=== PATIENT | female | born 1960 | race Caucasian/White ===

== ENCOUNTER 2018-05-09 08:39 | Observation (INO) | payer BC, OTHER ==
[2018-05-09] MEDS ORDERED: NA CHLORIDE 0.9% 500 ML ONE (09:17)
[2018-05-09] MEDS ORDERED: MECLIZINE HCL 12.5 MG TAB ONE (09:17)
[2018-05-09] MEDS ORDERED: DIAZEPAM 10 MG/2 ML INJ SYRINGE ONE (09:19)
[2018-05-09] MEDS ORDERED: ONDANSETRON 4 MG/2 ML VIAL ONE (09:21)
--- NOTE | 2018-05-09 09:33 | RAD REPORT ---
EXAM DESCRIPTION: CT - Head Brain Wo Cont - 05/09/2018 9:25 am CLINICAL HISTORY: Dizziness COMPARISON: None. TECHNIQUE: Computed axial tomography of the head was obtained. IV contrast was not requested. All CT scans are performed using dose optimization technique as appropriate and may include automated exposure control or mA/KV adjustment according to patient size. FINDINGS: An intracranial bleed is not seen . The ventricles are normal in caliber. No extra-axial fluid collection is noted. Fluid within the sinuses/ mastoids is not seen. IMPRESSION: No acute intracranial abnormality is seen. If patient's symptoms persist MRI of the bra in would be recommended.
[2018-05-09 09:43] LABS: Absolute Lymphocytes (CBC) 1.9 K/uL (0.7-4.9); Absolute Monocytes 0.4 K/uL (0.1-1.3); Absolute Neutrophil 3.9 K/uL (1.8-8.0); Basophils % 0.9 % (0-1.3); Eosinophils % 1.3 % (0-4.4); Hematocrit 42.8 % (36.0-45.0); Lymphocytes % 29.7 % (15.3-44.8); MCH 28.8 pg (27.0-35.0); MCV 83.8 fL (80-100); MPV 9.2 fL (7.6-11.3); Monocytes % 6.2 % (3.3-12.3); RBC Red Blood Cell Count 5.11 M/uL (3.86-4.86)
[2018-05-09 09:48] LABS: BUN Blood Urea Nitrogen 11 mg/dL (7-18); Bicarbonate 24 mmol/L (21-32); Glucose Level 95 mg/dL (74-106); Sodium Level 141 mmol/L (136-145)
[2018-05-09] MEDS ORDERED: METOCLOPRAMIDE 10 MG/2mL INJ ONE (10:23)
--- NOTE | 2018-05-09 10:56 | ER ---
Nurse's Notes [facility] Name: Lashay Triana Age: 57 yrs Sex: Female : 1960 Arrival Date: 05/09/2018 Time: 08:41 Bed 7 Private MD: Sedrick Matthews Diagnosis: Vertiginous syndromes in diseases classified elsewhere;Vertiginous syndromes in diseases classified elsewhere, left ear Presentation: 05/09 08:50 Presenting complaint: Patient states: i have been dizzy for 3 days , when i get up in tw2 the morning the room and myself is spinning, but when i lay on my LEFT side it is worse, i have a slight MORILLO and i have been feeling nauseous. Transition of care: patient was not received from another setting of care. Onset of symptoms was May 09, 2018. Risk Assessment: Do you want to hurt yourself or someone else? Patient reports no desire to harm self or others. Initial Sepsis Screen: Does the patient meet any 2 criteria? No. Patient's initial sepsis screen is negative. Does the patient have a suspected source of infection? No. Patient's initial sepsis screen is negative. Care prior to arrival: None. 08:50 Method Of Arrival: Wheelchair tw2 08:50 Acuity: CASSIE 3 tw2 Historical: - Allergies: 08:54 Vicodin; tw2 - Home Meds: 08:54 None [Active]; tw2 - PMHx: 08:54 None; tw2 - PSHx: 08:54 None; tw2 - Immunization history:: Adult Immunizations. - Social history:: Smoking status: Patient/guardian denies using tobacco. - Ebola Screening: : Patient denies travel to an Ebola-affected area in the 21 days before illness onset. Screenin:55 Abuse screen: Denies threats or abuse. Nutritional screening: No deficits noted. tw2 Tuberculosis screening: No symptoms or risk factors identified. Fall Risk None identified. Assessment: 08:54 General: Appears in no apparent distress. Behavior is calm, cooperative, appropriate tw2 for age. Pain: Complains of pain in MORILLO. Neuro: Level of Consciousness is awake, alert, obeys commands, Oriented to person, place, time, situation. Neuro: Reports dizziness, headache. Cardiovascular: Denies chest pain, shortness of breath, Heart tones S1 S2 Patient's skin is warm and dry. Respiratory: Airway is patent Respiratory effort is even, unlabored, Respiratory pattern is regular, symmetrical, Breath sounds are clear bilaterally. GI: No signs and/or symptoms were reported involving the gastrointestinal system. : No signs and/or symptoms were reported regarding the genitourinary system. EENT: No signs and/or symptoms were reported regarding the EENT system. Derm: No signs and/or symptoms reported regarding the dermatologic system. Musculoskeletal: Range of motion: intact in all extremities. 09:31 Reassessment: Patient appears in no apparent distress at this time. Patient and/or tw2 family updated on plan of care and expected duration. Pain level reassessed. pt is back from CT at this time, appears drowsy, o2 at 94%, pt placed on o2 via NC at 2L , will continue to monitor, provider notified. 10:08 Reassessment: Patient appears in no apparent distress at this time. Patient and/or tw2 family updated on plan of care and expected duration. Pain level reassessed. Patient is alert, oriented x 3, equal unlabored respirations, skin warm/dry/pink. pt c/o nauseousness and "still i cant even look to the left or i get dizzy", provider notified. 12:13 Reassessment: Patient appears in no apparent distress at this time. Patient and/or tw2 family updated on plan of care and expected duration. Pain level reassessed. Patient is alert, oriented x 3, equal unlabored respirations, skin warm/dry/pink. Vital Signs: 08:52 BP 133 / 100; Pulse 74; Resp 18; Temp 97.9(O); Pulse Ox 97% on R/A; Pain 4/10; tw2 09:32 BP 117 / 82; Pulse 58; Resp 14; Pulse Ox 96% on 2 lpm NC; Pain 0/10; tw2 10:08 BP 125 / 87; Pulse 58; Resp 17; Pulse Ox 100% on 2 lpm NC; tw2 12:12 BP 119 / 83; Pulse 65; Resp 17; Pulse Ox 98% on R/A; tw2 ED Course: 08:41 Patient arrived in ED. as 08:41 Sedrick Matthews MD is Private Physician. as 08:48 Salazar Nolan MD is Attending Physician. kdr 08:50 Jacquie De Souza RN is Primary Nurse. tw2 08:52 Triage completed. tw2 08:54 Arm band placed on. tw2 08:54 Bed in low position. Call light in reach. Pulse ox on. NIBP on. tw2 09:07 Inserted saline lock: 22 gauge in left antecubital area, using aseptic technique. Blood tw2 collected. 09:24 CT completed. Patient moved to CT via stretcher. Patient moved back from CT. cw1 09:25 CT Head Brain wo Cont In Process Unspecified. EDMS 10:[address] via stretcher. cw1 10:54 Duran Romeo DO is Hospitalizing Provider. kdr 11:02 CT completed. Patient moved back from CT. cw1 11:03 Head angio In Process Unspecified. EDMS 12:17 No provider procedures requiring assistance completed. Patient admitted, IV remains in tw2 place. Administered Medications: 09:15 Drug: Meclizine 50 mg Route: PO; tw2 10:08 Follow up: Response: No adverse reaction; No change in condition tw2 09:15 Drug: Zofran 4 mg Route: IVP; Site: left antecubital; tw2 10:06 Follow up: Response: No adverse reaction tw2 10:07 Follow up: Response: No adverse reaction; Nausea unchanged; Nausea unchanged, provider tw2 notified. 09:18 Drug: Valium 5 mg Route: IVP; Site: left antecubital; tw2 10:06 Follow up: Response: No adverse reaction; Marked relief of symptoms tw2 09:31 Drug: NS 0.9% 500 ml Route: IV; Rate: bolus; Site: left antecubital; tw2 10:00 Follow up: Response: No adverse reaction; IV Status: Completed infusion; IV Intake: tw2 500ml 10:20 Drug: Reglan 10 mg Route: IVP; Site: left antecubital; tw2 12:18 Follow up: Response: No adverse reaction; Nausea is decreased tw2 Intake: 10:00 IV: 500ml; Total: 500ml. tw2 Outcome: 10:55 Decision to Hospitalize by Provider. kdr 12:17 Admitted to Med/surg accompanied by tech, via wheelchair, room 421, with chart, Report tw2 called to LIZZY Elise 12:17 Condition: stable 12:17 Instructed on the need for admit. 12:28 Patient left the ED. ph Signatures: Dispatcher [employer] EDMS Salazar Nolan MD MD kdr Martinez, Amelia as Woodley, Crystal cw1 Verenice Coronado RN RN ph Jacquie De Souza RN RN tw2
--- NOTE | 2018-05-09 10:56 | EDPHYS ---
Physician Documentation [facility] Name: Lashay Triana Age: 57 yrs Sex: Female : 1960 Arrival Date: 05/09/2018 Time: 08:41 Bed 7 Private MD: Sedrick Matthews ED Physician Salazar Nolan HPI: 05/09 11:53 This 57 yrs old Female presents to ER via Wheelchair with complaints of kdr Dizziness. 11:53 The patient presents with dizziness, feeling off balance, vertigo. Onset: The kdr symptoms/episode began/occurred gradually, 3 day(s) ago. Context: occurred at home, occurred while the patient was just prior to the episode the patient experienced no apparent symptoms. Modifying factors: The symptoms are alleviated by holding head still, Laying on right side, the symptoms are aggravated by movement of head, changing position, Laying on the right side with few s/s. On the left side is is much worse.. Associated signs and symptoms: Pertinent positives: headache, Pertinent negatives: abdominal pain, agitation, ataxia, blurred vision, chest pain, combativeness, confusion, diaphoresis, focal weakness, head injury, nausea, near-syncope. Severity of symptoms: At their worst the symptoms were severe incapacitating just prior to arrival, in the emergency department the symptoms have improved moderately. The patient has not experienced similar symptoms in the past. The patient has not recently seen a physician. Historical: - Allergies: 08:54 Vicodin; tw2 - Home Meds: 08:54 None [Active]; tw2 - PMHx: 08:54 None; tw2 - PSHx: 08:54 None; tw2 - Immunization history:: Adult Immunizations. - Social history:: Smoking status: Patient/guardian denies using tobacco. - Ebola Screening: : Patient denies travel to an Ebola-affected area in the 21 days before illness onset. ROS: 11:53 Constitutional: Negative for fever, chills, and weight loss, Eyes: Negative for injury, kdr pain, redness, and discharge, ENT: Negative for injury, pain, and discharge, Neck: Negative for injury, pain, and swelling, Cardiovascular: Negative for chest pain, palpitations, and edema, Respiratory: Negative for shortness of breath, cough, wheezing, and pleuritic chest pain, Abdomen/GI: Negative for abdominal pain, nausea, vomiting, diarrhea, and constipation, Back: Negative for injury and pain, : Negative for injury, bleeding, discharge, and swelling, MS/Extremity: Negative for injury and deformity, Skin: Negative for injury, rash, and discoloration, Psych: Negative for depression, anxiety, suicide ideation, homicidal ideation, and hallucinations, Allergy/Immunology: Negative for hives, rash, and allergies, Endocrine: Negative for neck swelling, polydipsia, polyuria, polyphagia, and marked weight changes, Hematologic/Lymphatic: Negative for swollen nodes, abnormal bleeding, and unusual bruising. 11:53 Neuro: Positive for dizziness, headache, Negative for gait disturbance, hearing loss, loss of consciousness, numbness, seizure activity, speech changes, syncope, near syncope, tingling, tinnitus, tremor, visual changes, weakness. Exam: 11:53 Constitutional: This is a well developed, well nourished patient who is awake, alert, kdr and in no acute distress. Head/Face: Normocephalic, atraumatic. Eyes: Pupils equal round and reactive to light, extra-ocular motions intact. Lids and lashes normal. Conjunctiva and sclera are non-icteric and not injected. Cornea within normal limits. Periorbital areas with no swelling, redness, or edema. Neck: Trachea midline, no thyromegaly or masses palpated, and no cervical lymphadenopathy. Supple, full range of motion without nuchal rigidity, or vertebral point tenderness. No Meningismus. Chest/axilla: Normal chest wall appearance and motion. Nontender with no deformity. No lesions are appreciated. Cardiovascular: Regular rate and rhythm with a normal S1 and S2. No gallops, murmurs, or rubs. Normal PMI, no JVD. No pulse deficits. Respiratory: Lungs have equal breath sounds bilaterally, clear to auscultation and percussion. No rales, rhonchi or wheezes noted. No increased work of breathing, no retractions or nasal flaring. Abdomen/GI: Soft, non-tender, with normal bowel sounds. No distension or tympany. No guarding or rebound. No evidence of tenderness throughout. Back: No spinal tenderness. No costovertebral tenderness. Full range of motion. Skin: Warm, dry with normal turgor. Normal color with no rashes, no lesions, and no evidence of cellulitis. MS/ Extremity: Pulses equal, no cyanosis. Neurovascular intact. Full, normal range of motion. Neuro: Awake and alert, GCS 15, oriented to person, place, time, and situation. Cranial nerves II-XII grossly intact. Motor strength 5/5 in all extremities. Sensory grossly intact. Cerebellar exam normal. Normal gait. Psych: Awake, alert, with orientation to person, place and time. Behavior, mood, and affect are within normal limits. Vital Signs: 08:52 BP 133 / 100; Pulse 74; Resp 18; Temp 97.9(O); Pulse Ox 97% on R/A; Pain 4/10; tw2 09:32 BP 117 / 82; Pulse 58; Resp 14; Pulse Ox 96% on 2 lpm NC; Pain 0/10; tw2 10:08 BP 125 / 87; Pulse 58; Resp 17; Pulse Ox 100% on 2 lpm NC; tw2 12:12 BP 119 / 83; Pulse 65; Resp 17; Pulse Ox 98% on R/A; tw2 Procedures: 11:53 Performed Coronado-[place]/Campos Maneuver: Left sided nystagmus and no improvement with kdr procedure. MDM: 10:55 Patient medically screened. kdr 11:53 Data reviewed: vital signs, nurses notes, lab test result(s), radiologic studies. kdr Counseling: I had a detailed discussion with the patient and/or guardian regarding: the historical points, exam findings, and any diagnostic results supporting the discharge/admit diagnosis, lab results, radiology results, the need for further work-up and treatment in the hospital. 05/09 09:04 Order name: CBC with Diff; Complete Time: 10:24 kdr 05/09 09:04 Order name: Chem 7; Complete Time: 10:24 kdr 05/09 11:31 Order name: Basic Metabolic Panel EDMT 05/09 11:31 Order name: Basic Metabolic Panel EDMT 05/09 11:31 Order name: Lipid Profile EDMT 05/09 11:31 Order name: Lipid Profile EDMT 05/09 09:04 Order name: CT Head Brain wo Cont; Complete Time: 10:24 kdr 05/09 10:41 Order name: Head angio EDMT 05/09 11:32 Order name: Echo with Doppler EDMT 05/09 11:32 Order name: T4,Total EDMS 05/09 11:32 Order name: Thyroid Stimulating Hormone EDMT 05/09 11:32 Order name: Stroke Protocol EDMT 05/09 11:32 Order name: Chest Pa And Lat (2 Views) EDMT 05/09 11:32 Order name: Carotid Artery Bilateral EDMT 05/09 09:07 Order name: IV Start; Complete Time: 09:07 tw2 05/09 11:32 Order name: Physical Therapy Consult EDMT 05/09 11:32 Order name: EKG Electrocardiogram EDMT 05/09 11:32 Order name: Heart Healthy EDMT Administered Medications: 09:15 Drug: Meclizine 50 mg Route: PO; tw2 10:08 Follow up: Response: No adverse reaction; No change in condition tw2 09:15 Drug: Zofran 4 mg Route: IVP; Site: left antecubital; tw2 10:06 Follow up: Response: No adverse reaction tw2 10:07 Follow up: Response: No adverse reaction; Nausea unchanged; Nausea unchanged, provider tw2 notified. 09:18 Drug: Valium 5 mg Route: IVP; Site: left antecubital; tw2 10:06 Follow up: Response: No adverse reaction; Marked relief of symptoms tw2 09:31 Drug: NS 0.9% 500 ml Route: IV; Rate: bolus; Site: left antecubital; tw2 10:00 Follow up: Response: No adverse reaction; IV Status: Completed infusion; IV Intake: tw2 500ml 10:20 Drug: Reglan 10 mg Route: IVP; Site: left antecubital; tw2 12:18 Follow up: Response: No adverse reaction; Nausea is decreased tw2 Disposition: 05/09/18 10:55 Hospitalization ordered by Duran Romeo for Observation. Preliminary diagnosis are Vertiginous syndromes in diseases classified elsewhere, Vertiginous syndromes in diseases classified elsewhere, left ear. - Bed requested for Telemetry/MedSurg (observation). - Status is Observation. ph - Condition is Fair. - Problem is new. - Symptoms have improved. UTI on Admission? No Signatures: Dispatcher [employer] [facility] Ngoc Hutchison RN RN dw Rittger, Kevin, MD MD [facility] Verenice Coronado RN RN ph Wise, Tara, RN RN tw2 Corrections: (The following items were deleted from the chart) 12:04 10:55 Hospitalization Ordered by Duran Romeo DO for Observation. Preliminary dw diagnosis is Vertiginous syndromes in diseases classified elsewhere; Vertiginous syndromes in diseases classified elsewhere, left ear. Bed requested for Telemetry/MedSurg (observation). Status is Observation. Condition is Fair. Problem is new. Symptoms have improved. UTI on Admission? No. kdr 12:28 12:04 05/09/2018 10:55 Hospitalization Ordered by Duran Romeo DO for Observation. ph Preliminary diagnosis is Vertiginous syndromes in diseases classified elsewhere; Vertiginous syndromes in diseases classified elsewhere, left ear. Bed requested for Telemetry/MedSurg (observation). Status is Observation. Condition is Fair. Problem is new. Symptoms have improved. UTI on Admission? No. dw
--- NOTE | 2018-05-09 11:18 | RAD REPORT ---
EXAM DESCRIPTION: CTHead angio05/09/2018 11:03 am CLINICAL HISTORY: Syncope COMPARISON: May 09, [address] TECHNIQUE: CT angiogram of the head was obtained. 50 cc Isovue 370 was intravenously. 3D MIPS recons truction performed All CT scans are performed using dose optimization technique as appropriate and may include automated exposure control or mA/KV adjustment according to patient size. FINDINGS: The basilar, internal carotid, anterior cerebral, middle cerebral and posterior cerebral a rteries are normal caliber. An aneurysm is not seen. A significant stenosis is not noted. IMPRESSION: Unremarkable CT angiogram head.
[2018-05-09] MEDS ORDERED: MECLIZINE HCL 12.5 MG TAB PO PRN (11:25)
[2018-05-09] MEDS ORDERED: ONDANSETRON 4 MG/2 ML VIAL IV PRN (11:25)
--- NOTE | 2018-05-09 11:39 | P.HP ---
Certification for Inpatient Patient admitted to: Observation With expected LOS: <2 Midnights Patient will require the following post-hospital care: None Practitioner: I am a practitioner with admitting privileges, knowledge of patient current condition, hospital course, and medical plan of care. Services: Services provided to patient in accordance with Admission requirements found in Title 42 Section 412.3 of the Code of Federal Regulations Patient History Date of Service: 05/09/18 Primary Care Provider: Dr. Matthews Reason for admission: Severe dizziness, nausea History of Present Illness: 57-year-old female presented emergency room with severe dizziness, nausea. Patient had reported dizziness over the last 3 days. It is been getting worse. It is difficult to walk due to the dizziness. She feels when she lies on her left side dizziness is worse. She has reported increasing nausea. She denies any chest pain, shortness of breath her palpitations. Patient reports no history of past medical problems. Patient came to the ER for further evaluation after she had severe dizziness at work. Patient evaluate emergency room. Vial signs stable. White count 6.4, hemoglobin 14.7. Sodium 141, potassium 4.0. BUN 11, creatinine 0.6. Glucose 95. CT the head shows no acute stroke. CT angiogram shows no significant abnormalities. Patient was given IV medication for dizziness. Dizziness persists. Patient admitted for further evaluation. When I saw the patient ER, she was lying in bed. Dizziness was worse when she was lying on her left side. Overall stable. Nausea improved. Patient denies any weakness or paresthesias to the extremities. No slurred speech noted. She has had some dizziness in the past. Allergies acetaminophen [From Vicodin] Adverse Reaction (Verified 05/09/18 10:38) Itching hydrocodone [From Vicodin] Adverse Reaction (Verified 05/09/18 10:38) Itching Home medications list reviewed: Yes - Past Medical/Surgical History Diabetic: No Past Medical History: Patient denies medical history Past Surgical History: Patient denies surgical history Psychosocial/ Personal History: Patient is . She works at [employer]. She has 1 child. - Family History Father -: Heart disease, Diabetes Mother -: Diabetes, Kidney disease - Social History Smoking Status: Never smoker Alcohol use: No CD- Drugs: No Caffeine use: Yes Place of Residence: Home Review of Systems General: Weakness, As per HPI Eyes: Unremarkable ENT: Unremarkable Respiratory: Unremarkable Cardiovascular: Light Headedness, As per HPI Gastrointestinal: Nausea, As per HPI Genitourinary: Unremarkable Musculoskeletal: As per HPI Integumentary: Unremarkable Neurological: Weakness, Incoordination, As per HPI Lymphatics: Unremarkable Physical Examination - Physical Exam General: Alert, In no apparent distress, Oriented x3, Cooperative HEENT: Atraumatic, Normocephalic, PERRLA, Other (Dry mucous membranes), EOMI Neck: Supple, No Thyromegaly Respiratory: Clear to auscultation bilaterally, Normal air movement Cardiovascular: Normal pulses, Regular rate/rhythm Gastrointestinal: Normal bowel sounds, Soft and benign, Non-distended, No tenderness, No masses, No rebound, No guarding Musculoskeletal: No erythema, No tenderness, No warmth Integumentary: No tenderness/swelling, No erythema, No warmth, No cyanosis Neurological: Normal speech, Normal strength at 5/5 x4 extr, Normal tone, Cranial nerves 3-12 intact, Normal affect, Other (Patient not able to stand due to dizziness. Dizziness worse when lying to her left side.) - Studies Laboratory Data (last 24 hrs) 05/09/18 09:10: Sodium 141, Potassium 4.0, BUN 11, Creatinine 0.60, Glucose 95 05/09/18 09:10: WBC 6.4, Hgb 14.7, Hct 42.8, Plt Count 309 Assessment and Plan - Plan Impression: Persistent vertigo worse when lying on her left side with poor balance and nausea Dehydration Plan: Persistent vertigo worse when lying on her left side with poor balance and nausea: CT head and CT angiogram unremarkable. Will monitor the patient overnight. Will try to obtain echocardiogram, carotid Doppler and MRI. Will have physical therapy assess ambulation. Will provide medication for vertigo. Will discuss case further with Neurology. Doubt TIA/CVA. Will provide medication for nausea. Will reassess tomorrow. Will monitor for any changes. Anticipate discharge in the next [address] hr[address] precautions in place. Dehydration: Will provide IV fluids. Continue as above. Discharge Plan: Home Plan to discharge in: 24 Hours - Advance Directives Does patient have a Living Will: No Does patient have a Durable POA for Healthcare: No - Code Status/Comfort Care Code Status Assessed: Yes (Patient full code.) Time Spent Managing Pts Care (In Minutes): 55
--- NOTE | 2018-05-09 12:42 | RAD REPORT ---
EXAM DESCRIPTION: Adam Dawson (2 Views)05/09/2018 12:31 pm CLINICAL HISTORY: Cough COMPARISON: None FINDINGS: The lungs appear clear of acute infiltrate. The heart is normal size IMPRESSION: No acute abnormalities displayed
[2018-05-09] MEDS: NA CHLORIDE 0.9% 1,000 ML IV SCH (13:09)
[2018-05-09 13:28] LABS: T4,Total 9.5 ug/dL (4.8-13.9); Thyroid Stimulating Hormone 1.82 uIU/mL (0.360-3.740)
[2018-05-09 13:33] VITALS: BMI 32.1
[2018-05-09] MEDS: ENOXAPARIN 40 MG/0.4 ML SQ SCH (13:36)
[2018-05-09 13:39] VITALS: O2SAT 96
[2018-05-09] MEDS: FAMOTIDINE 20 MG TAB PO SCH (20:20)
--- NOTE | 2018-05-09 20:58 | RAD REPORT ---
EXAM DESCRIPTION: USCarotid Artery Wyvfwtenx41/3/2018 8:18 pm CLINICAL HISTORY: Vertigo COMPARISON: None FINDINGS: The velocity of the right internal carotid artery equals 60 cm/sec. The right ICA/CCA rati o 0.9 The velocity of the left internal carotid artery equals 57 cm/sec. The left ICA/CCA ratio 0.7 Plaque is not visualized within the carotid arteries. The vertebral arteries demonstrate antegrade flow IMPRESSION: Unremarkable exam
[2018-05-09] MEDS ORDERED: ATORVASTATIN 40 MG TAB PO SCH (21:00)
[2018-05-10] MEDS: NA CHLORIDE 0.9% 1,000 ML IV SCH (01:20)
[2018-05-10 06:04] LABS: Absolute Lymphocytes (CBC) 1.6 K/uL (0.7-4.9); Absolute Monocytes 0.5 K/uL (0.1-1.3); Absolute Neutrophil 3.4 K/uL (1.8-8.0); Basophils % 0.8 % (0-1.3); Eosinophils % 2.5 % (0-4.4); Hematocrit 40.9 % (36.0-45.0); Lymphocytes % 27.5 % (15.3-44.8); MCV 84.2 fL (80-100); MPV 8.8 fL (7.6-11.3); Monocytes % 9.5 % (3.3-12.3); RBC Red Blood Cell Count 4.85 M/uL (3.86-4.86)
[2018-05-10 06:07] LABS: BUN Blood Urea Nitrogen 9 mg/dL (7-18); Bicarbonate 25 mmol/L (21-32); Glucose Level 79 mg/dL (74-106); HDL Cholesterol 45 mg/dL (40-60); LDL Cholesterol, Calculated 75 (<130); Sodium Level 145 mmol/L (136-145)
[2018-05-10] MEDS: ENOXAPARIN 40 MG/0.4 ML SQ SCH (08:13)
[2018-05-10] MEDS: FAMOTIDINE 20 MG TAB PO SCH (08:13)
[2018-05-10] MEDS ORDERED: ASPIRIN EC 81 MG TAB PO SCH (09:00)
[2018-05-10 09:03] VITALS: BP 127/84; TEMP 97.2
--- NOTE | 2018-05-10 09:50 | P.DS ---
Admission Date: 05/09/18 Discharge Date: 05/10/18 Primary Care Provider: Dr. Matthews Disposition: ROUTINE DISCHARGE Discharge Condition: GOOD Reason for Admission: Severe dizziness, nausea Consultations: None Procedures: CT scan: COMPARISON: None. TECHNIQUE: Computed axial tomography of the head was obtained. IV contrast was not requested. All CT scans are performed using dose optimization technique as appropriate and may include automated exposure control or mA/KV adjustment according to patient size. FINDINGS: An intracranial bleed is not seen . The ventricles are normal in caliber. No extra-axial fluid collection is noted. Fluid within the sinuses/ mastoids is not seen. IMPRESSION: No acute intracranial abnormality is seen. CT angiogram: COMPARISON: May 09, [address] TECHNIQUE: CT angiogram of the head was obtained. 50 cc Isovue 370 was intravenously. 3D MIPS reconstruction performed All CT scans are performed using dose optimization technique as appropriate and may include automated exposure control or mA/KV adjustment according to patient size. FINDINGS: The basilar, internal carotid, anterior cerebral, middle cerebral and posterior cerebral arteries are normal caliber. An aneurysm is not seen. A significant stenosis is not noted. IMPRESSION: Unremarkable CT angiogram head. Carotid Doppler: COMPARISON: None FINDINGS: The velocity of the right internal carotid artery equals 60 cm/sec. The right ICA/CCA ratio 0.9 The velocity of the left internal carotid artery equals 57 cm/sec. The left ICA/ CCA ratio 0.7 Plaque is not visualized within the carotid arteries. The vertebral arteries demonstrate antegrade flow IMPRESSION: Unremarkable exam Medical problem list: Persistent vertigo, imbalance and nausea secondary to benign paroxysmally positional vertigo Dehydration Brief History of Present Illness: 57-year-old female presented emergency room with severe dizziness, nausea. Patient had reported dizziness over the last 3 days. It is been getting worse. It is difficult to walk due to the dizziness. She feels when she lies on her left side dizziness is worse. She has reported increasing nausea. She denies any chest pain, shortness of breath her palpitations. Patient reports no history of past medical problems. Patient came to the ER for further evaluation after she had severe dizziness at work. Patient evaluate emergency room. Vial signs stable. White count 6.4, hemoglobin 14.7. Sodium 141, potassium 4.0. BUN 11, creatinine 0.6. Glucose 95. CT the head shows no acute stroke. CT angiogram shows no significant abnormalities. Patient was given IV medication for dizziness. Dizziness persists. Patient admitted for further evaluation. When I saw the patient ER, she was lying in bed. Dizziness was worse when she was lying on her left side. Overall stable. Nausea improved. Patient denies any weakness or paresthesias to the extremities. No slurred speech noted. She has had some dizziness in the past. Hospital Course: Patient presented with persistent vertigo, imbalance and nausea. Symptoms were worse when lying on the left side. Patient had persistent nausea and required hospitalization. During the course of her stay patient received IV fluids and meclizine. Patient continued with Campos exercises and physical therapy. Symptoms resolved. CT scan head, CT angiogram head, and carotid Doppler unremarkable. At discharge she will continue with Campos maneuver exercises and meclizine 12.5 mg 1 pill 3 times a day as needed for vertigo. Patient will need a follow up with her PCP within 1 week to follow up this hospitalization. If symptoms persist, patient can follow up with ENT or Neurology. Vital Signs/Physical Exam: Temp Pulse Resp BP Pulse Ox 97.2 F 60 16 127/84 96 05/10/18 08:00 05/10/18 08:00 05/10/18 08:00 05/10/18 08:00 05/10/18 08:00 General: Alert, In no apparent distress, Oriented x3, Cooperative HEENT: Atraumatic Neck: Supple Respiratory: Clear to auscultation bilaterally, Normal air movement Cardiovascular: Normal pulses, Regular rate/rhythm Gastrointestinal: Normal bowel sounds, Soft and benign, Non-distended, No tenderness, No masses, No rebound, No guarding Musculoskeletal: No erythema, No tenderness, No warmth Integumentary: No tenderness/swelling, No erythema, No warmth, No cyanosis Neurological: Normal speech, Normal strength at 5/5 x4 extr, Normal tone, Normal affect Laboratory Data at Discharge: WBC 5.7 K/uL (4.3-10.9) 05/10/18 05:00 Hgb 14.1 g/dL (12.0-15.0) 05/10/18 05:00 Hct 40.9 % (36.0-45.0) 05/10/18 05:00 Plt Count 279 K/uL (152-406) 05/10/18 05:00 Sodium 145 mmol/L (136-145) 05/10/18 05:00 Potassium 4.0 mmol/L (3.5-5.1) 05/10/18 05:00 BUN 9 mg/dL (7-18) 05/10/18 05:00 Creatinine 0.60 mg/dL (0.55-1.3) 05/10/18 05:00 Glucose 79 mg/dL (74-106) 05/10/18 05:00 Magnesium 2.0 mg/dL (1.8-2.4) 05/10/18 05:00 Triglycerides 99 mg/dL (<150) 05/10/18 05:00 Cholesterol 140 mg/dL (<200) 05/10/18 05:00 HDL Cholesterol 45 mg/dL (40-60) 05/10/18 05:00 Cholesterol/HDL Ratio 3.11 05/10/18 05:00 Home Medications: Meclizine HCl 12.5 mg PO TID PRN #15 tablet 05/10/18 New Medications: Meclizine HCl 12.5 mg PO TID PRN #15 tablet PRN Reason: Vertigo Patient Discharge Instructions: 1. Patient will need to follow up her PCP in 1 week to follow up this hospitalization. 2. Patient presented with persistent vertigo, imbalance and nausea. Symptoms were worse when lying on the left side. Patient had persistent nausea and required hospitalization. During the course of her stay patient received IV fluids and meclizine. Patient continued with Campos exercises and physical therapy. Symptoms resolved. CT scan head, CT angiogram head, and carotid Doppler unremarkable. At discharge she will continue with Campos maneuver exercises and meclizine 12.5 mg 1 pill 3 times a day as needed for vertigo. Patient will need a follow up with her PCP within 1 week to follow up this hospitalization. If symptoms persist, patient can follow up with ENT or Neurology. Diet: AHA Activity: Fall precautions Time spent managing pt's care (in minutes): 55
== END 2018-05-10 11:00 | disposition home or self-care (01) ==
LOC: ER 08:39 → ERHOLD 11:25 → 4TH 12:18
PROVIDERS: ADMIT Family Medicine; ATTEND Family Medicine
DX: H81.10 Benign paroxysmal vertigo, unspecified ear (principal); E86.0 Dehydration
CPT/HCPCS: 36415; 70450; 70496; 71046; 80048; 80061; 83735; 84436; 84443; 85025; 93880; 96374; 96375; 99285; G0378; J1650; J2405; J2765; J3360; J7030; Q9967